=== PATIENT | female | born 1960 | race Caucasian/White ===

== ENCOUNTER 2018-06-15 10:32 | Outpatient (CLI) | payer OTHER, SELFPAY ==
[2018-06-15] VITALS (8 sets, daily range): BP systolic 119–143; BP diastolic 80–94; PULSE 78–85; RESP 16–20; TEMP 36.2; O2SAT 95–99
--- NOTE | 2018-06-15 10:34 | DI.RAD.S_ITS ---
PROCEDURE: PAIN C/T INTERLAMINAR INJECT INDICATIONS: SPINAL STENOSIS FINDINGS: Fluoroscopic spot filming was performed to verify placement of spinal needles at the C6-C7 level(s), as labeled on the films. Appropriate location(s) of the needle tip(s) was confirmed by injection of iodinated contrast. Dictated by: Major Diaz M.D. on 06/15/2018 at 20:45 Approved by: Major Diaz M.D. on 06/15/2018 at 20:45
[2018-06-15] MEDS: MIDAZOLAM 5 MG/5 ML VIAL IV (11:15)
[2018-06-15] MEDS: DEXAMETHASONE 10 MG/ML VIAL 30 MG INJ (11:21)
[2018-06-15] MEDS: IOPAMIDOL 15 ML VIAL 3 ML INJ (11:21)
[2018-06-15] MEDS: LIDOCAINE 1% 20 ML INJ 5 ML INJ (11:21)
--- NOTE | 2018-06-15 11:33 | PM.PROC.1 ---
Procedures Date/Time Date of procedure: 06/15/18 Time of procedure: 11:33 General Procedure description: PREOP DIAGNOSIS 1. CERVICAL STENOSIS, 2. CERVICAL HNP WITH UPPER EXTREMITY RADICULAR FEATURES, POST OP DIAGNOSIS 1. CERVICAL STENOSIS, 2. CERVICAL HNP WITH UPPER EXTREMITY RADICULAR FEATURES, PROCEDURES 1. FLUORSCOPICALLY GUIDED CONTRAST CONTROLLED INTERLAMINAR EPIDURAL STEROID INJECTION - C6/7 TL SHARIF PHYSICIAN: Wesley Kelly, DO INDICATIONS Mansi is referred by SHONA Hernandes for treatment of Cervical HNP with Upper Extremity Paresthesias. FINDINGS Cervical Stenosis due to disc deterioration and nerve root irritation and nerve root irritation DESCRIPTION OF PROCEDURE Fluoroscopically guided, contrast-controlled C6/7 translaminar epidural steroid injection with conscious sedation. Following denial of allergy and review of potential side effects and complications, including, but not necessarily limited to, infection, allergic reaction, local tissue breakdown, temporary as well as permanent nerve injury, stroke, paralysis, and possible , the patient indicated that patient understood and agreed to proceed. An informed consent document was signed by the patient, witnessed by a nurse, and placed in the patient's chart. Additionally, other treatment options including modalities, medications, and physical therapy were reviewed with the patient. After review of previous anaesthesic history and IV conscious sedation the patient was deemed safe to proceed with todays procedure with IV conscious sedation as ASA class II designation. Safety time-out was performed to confirm patient ID, procedure to be performed and site of procedure. IV sedation was accomplished with a combination of 3mg of Versed administered by the RN after DO order, titrated to patient comfort during the course of the procedure while the patient remained responsive to all verbal commands. In the prone position, following sterile prep and drape of the cervical region, the C6/7 translaminar space was identified fluoroscopically. The skin was anesthetized via a 25-gauge 1.5-inch needle with 1% lidocaine solution. At this point, a 25-gauge, 2.5-inch short bevel spinal needle was atraumatically introduced and advanced under fluoroscopic guidance into epidural space at the C6/7 translaminar space. Depth was confirmed on lateral view. Radiological data, including multiple fluoroscopic views of the cervical spine, reveal a spinal needle at the C6/7 translaminar space. Lateral views then show placement of the needle in the epidural space. Subsequent views show contrast material flowing superiorly and inferiorly in the epidural space. DSA fluoroscopy with live contrast injection, once again, confirmed no vascular or intrathecal uptake. At this point, using loss of resistance technique with saline and air, the epidural space was entered. Following negative aspiration, injection of approximately 1.5 cc of Isovue-200 with live fluoroscopy in the AP view confirmed epidural flow in the epidural space without vascular or intrathecal uptake observed. Subsequently, a test dose of 1 cc of 1% lidocaine solution was injected and patient was observed for two minutes without signs or symptoms of complications, including abdominal pain, shortness of breath, bilateral upper or lower extremity weakness, nausea and vomiting, prior to steroid injection. At this point, 3 cc or 30 mg of dexamethasone was then injected without incident. The patient tolerated the procedure well without signs or symptoms of complications prior to being transferred to the recovery area for further monitoring, The patient was then transferred to the recovery area where they were observed for an appropriate period of time after the injection. The patient reported a VAS score of 6 prior to the procedure and a post-procedure VAS of 0. Total Fluoroscopy Time: 37.0 seconds Total Conscious Time: 24min POST OP INSTRUCTIONS The patient was provided a Pain Log to continue to record their response to the target-specific procedure prior to follow-up visit with the referring provider. Additionally, specific post-injection care instructions and a contact number to our office were provided if concerns arise regarding possible complications associated with the procedure are suspected. Wesley Kelly, Complications: none
--- NOTE | 2018-06-15 11:41 | PC.NURSE ---
pt tolerated procedure well. awake and alert getting off table with minimal assist. Transferred via w/c to pre procedure room for continued monitoring with Karen HORTON.
--- NOTE | 2018-06-15 11:42 | PC.NURSE ---
ACCEPTED CARE OF PT IN STABLE CONDITION IN POST PROCEDURE AREA.
--- NOTE | 2018-06-16 17:06 | PC.NURSE ---
Follow up call to pt today one day post injection. left message as pt did not answer phone.
== END 2018-06-15 12:02 | disposition home or self-care (01) ==
PROVIDERS: Visit Provider Physical Medicine & Rehabilitation
DX: M48.02 Spinal stenosis, cervical region (principal); M50.123 Cervical disc disorder at C6-C7 level with radiculopathy
CPT/HCPCS: 62321; 99152; J1100; J2250

== ENCOUNTER → 2019-03-16 12:12 | Outpatient (CLI) | payer MEDICARE, OTHER, SELFPAY ==
--- NOTE | 2019-03-16 12:16 | DI.RAD.S_ITS ---
PROCEDURE: XR LUMBAR SPINE MIN 4V INDICATIONS: low back pain TECHNIQUE: 5 views of the lumbar spine were acquired. COMPARISON: None. FINDINGS: Bones: 5 nonrib-bearing vertebrae are present. There is normal bony alignment. No spondylolisthesis. Multilevel spondylitic changes identified in the lower thoracic spine and visualized lumbar spine with moderate mid and lower lumbar facet arthropathy. Degenerative endplate changes with focal changes at inferior endplate of L2 and superior endplate of L3 suggestive of Schmorl's node. No acute vertebral body compression fractures. No suspicious bony lesions. Soft tissues: Overlying bowel gas pattern is normal. No suspicious soft tissue calcifications. Vascular calcifications are present. Oblique images: No pars defects. IMPRESSION: Multilevel spondylosis of the lower thoracic spine and imaged lumbar spine with moderate mid and lower lumbar facet arthropathy. No evidence for pars defects. Dictated by: Hilario Chery M.D. on 03/16/2019 at 17:49 Approved by: Hilario Chery M.D. on 03/16/2019 at 17:52
== END ==
PROVIDERS: Visit Provider Physical Medicine & Rehabilitation
DX: M47.817 Spondylosis without myelopathy or radiculopathy, lumbosacral region (principal); M47.814 Spondylosis without myelopathy or radiculopathy, thoracic region; M47.816 Spondylosis without myelopathy or radiculopathy, lumbar region; M51.26 Other intervertebral disc displacement, lumbar region; M79.7 Fibromyalgia; R51 Headache; M48.02 Spinal stenosis, cervical region; M50.20 Other cervical disc displacement, unspecified cervical region
CPT/HCPCS: 72110; 99214

== ENCOUNTER → 2019-04-14 17:34 | Outpatient (CLI) | payer MEDICARE, OTHER, SELFPAY ==
--- NOTE | 2019-04-14 17:40 | DI.MRI.S_ITS ---
PROCEDURE: MR LUMBAR SPINE WO CON INDICATIONS: low back pain TECHNIQUE: Noncontrast sagittal T1 spin echo and T2 fast echo, sagittal STIR, axial T1 and T2 fast spin echo through the lumbar spine. In cases with scoliosis, additional coronal T2 fast spin echo may be performed. COMPARISON: [facility], CR, XR LUMBAR SPINE MIN 4V, 03/16/2019, 12:15. FINDINGS: Image quality: Excellent. Alignment and Curvature: There is minimal anterolisthesis at L5-S1. Associated pars defects are not seen. Bone Marrow: Marrow is of normal overall signal. No acute vertebral body compression fractures. Spinal Cord: Conus medullaris terminates at the T12-L1 level. Visualized cord demonstrates normal signal and size. Paraspinous Soft Tissues: No paravertebral masses. A horseshoe kidney is incidentally noted. T11-T12: Mild to moderate loss of disc height is seen. Bridging endplate osteophytes are seen. Mild disc bulge is seen. No significant neural foraminal narrowing. Mild central canal narrowing is seen. T12-L1: Normal appearance. L1-L2: Normal appearance. L2-L3: Mild to moderate loss of disc height and disc signal are seen. Zgid-dn-rmousvwv disc bulge is seen. No significant neural foraminal narrowing is seen. Minimal central canal narrowing is seen. L3-L4: The disc height is well-preserved. Loss of disc signal is seen at this level. Mild generalized disc bulge is seen. There is mild to moderate left-sided and no significant right-sided neural foraminal narrowing seen. No significant central canal narrowing is seen. L4-L5: The disc height is well-preserved. Loss of disc signal is seen at this level. Mild generalized disc bulge is seen. There is mild to moderate right-sided and moderate left-sided facet hypertrophy seen. There is mild right-sided and moderate left-sided neural foraminal narrowing seen. Mild central canal narrowing is seen. L5-S1: The disc height is well-preserved. Loss of disc signal is seen at this level. Minimal disc bulge is seen. Uqqe-py-naxrxfmo facet hypertrophy is seen. There is minimal left-sided and no right-sided neural foraminal narrowing. The central canal is widely patent. IMPRESSION: Multiple levels of lumbar spine degenerative change are seen, which are likely within normal limits for age. Horseshoe kidney seen. Dictated by: Juan Manuel Kimball M.D. on 04/15/2019 at 10:33 Approved by: Juan Manuel Kimball M.D. on 04/15/2019 at 10:38
== END ==
PROVIDERS: Visit Provider Physical Medicine & Rehabilitation
DX: M54.5 Low back pain (principal); M47.816 Spondylosis without myelopathy or radiculopathy, lumbar region; M47.817 Spondylosis without myelopathy or radiculopathy, lumbosacral region; Q63.1 Lobulated, fused and horseshoe kidney
CPT/HCPCS: 72148

== ENCOUNTER 2019-06-21 14:46 | Outpatient (CLI) | payer MEDICARE, OTHER, SELFPAY ==
[2019-06-21] VITALS (8 sets, daily range): BP systolic 105–117; BP diastolic 60–86; PULSE 71–87; RESP 16; TEMP 36.1; O2SAT 93–96
--- NOTE | 2019-06-21 15:55 | DI.RAD.S_ITS ---
PROCEDURE: PAIN L/S FACET INJ/BLK 1ST BROOKS COMPARISON: None. INDICATIONS: SPONDYLOSIS FINDINGS: 6 intraoperative fluoroscopy images demonstrate needle placement at L3-L4 and L4-L5 facet joint areas bilaterally. IMPRESSION: Fluoroscopy for pain management. Dictated by: Ariana Betancourt M.D. on 06/21/2019 at 17:34 Approved by: Ariana Betancourt M.D. on 06/21/2019 at 17:34
[2019-06-21] MEDS: fentaNYL 100 MCG/2 ML INJ 50 MCG IV (16:21)
[2019-06-21] MEDS: MIDAZOLAM 5 MG/5 ML VIAL IV (16:21)
[2019-06-21] MEDS: LIDOCAINE 1% 20 ML 10 ML INJ (16:28)
[2019-06-21] MEDS: BETAMETHASONE 30 MG/5 ML MDV 12 MG INJ (16:28)
[2019-06-21] MEDS: IOPAMIDOL 15 ML VIAL 3 ML INJ (16:28)
[2019-06-21] MEDS: BUPIVACAINE 0.25% (PF) VIAL 2 ML INJ (16:28)
--- NOTE | 2019-06-21 16:32 | PC.NURSE ---
ASSISTING PT OFF TABLE AND TRANSPORTING PT TO POST PROC AREA IN STABLE CONDITION. PASSING RN CARE OF PT OFF TO ESTEBAN Wright RN.
--- NOTE | 2019-06-21 16:36 | P.PCN_ITS ---
Procedures Date/Time Date of procedure: 06/21/19 Time of procedure: 16:36 General Procedure description: PREOP DIAGNOSIS 1. FACET ARTHROPATHY 2. AXIAL LBP 3. MULTILEVEL DDD POST OP DIAGNOSIS 1. FACET ARTHROPATHY 2. AXIAL LBP 3. MULTILEVEL DDD PROCEDURES 1. FLUORSCOPICALLY GUIDED CONTRAST CONTROLLED FACET JOINT INJECTIONS BILATERAL L3/4, L4/5 PHYSICIAN: Wesley Kelly DO INDICATIONS: Mansi is referred by SHONA Hernandes for treatment of Axial LBP FINDINGS Multilevel Facet Arthropathy with Clinically significant axial LBP DESCRIPTION OF PROCEDURE Fluoroscopically guided, contrast-controlled bilateral L3/4, L4/5 facet joint injections. Following review of allergy and review of potential side effects and complications, including, but not necessarily limited to, infection, allergic reaction, local tissue breakdown, stroke, temporary or permanent nerve injury, paralysis, and possible , the patient indicated that the patient understood and agreed to proceed. An informed consent document was signed by the patient, witnessed by a nurse, and placed in the patient's chart. Additionally, other treatment options including medications, modalities, and physical therapy were reviewed with the patient. After review of previous anaesthesic history and IV conscious sedation the patient was deemed safe to proceed with todays procedure with IV conscious sedation as ASA class II designation. Safety time-out was performed to confirm patient ID, procedure to be performed and site of procedure. IV sedation was accomplished with a combination of 2mg of Versed and 50mcg of Fentanyl was administered by the RN after DO order, titrated to patient comfort during the course of the procedure while the patient remained responsive to all verbal commands. In the prone position, following sterile prep and drape of the lumbar region, the posterior aspect of the L3/4, L4/5 facet joints were identified fluoroscopically. The skin was anesthetized via a 25-gauge 1.5-inch needle with 1% lidocaine solution into the corresponding facet joints. At this point, a 22- gauge 3.5-inch spinal needle was atraumatically introduced and advanced under fluoroscopic guidance into the corresponding facet joints. Following negative aspiration, injections of approximately 0.2-cc of Isovue 200 confirmed interarticular placement without vascular uptake. The identical procedure was then performed at the L3/4, L4/5 facet joints on the left. Radiological data, including multiple fluoroscopic views of the lumbosacral spine, reveal a spinal needle at the L3/4, L4/5 facet joints bilaterally. Subsequent views show flow of contrast material both superiorly and inferiorly within the joint space without vascular or intrathecal uptake. At this point, a total of 0.5cc including a mixture of 0.25cc Marcaine and 0.25cc betamethasone was injected without complication into each of the corresponding facet joints. The patient tolerated the procedure well without signs or symptoms of complications prior to transfer to the recovery area continued monitoring without incident. The patient was then transferred to the recovery area where they were observed for an appropriate period of time after the injection. The patient reported a VAS score of 7 prior to the procedure and a post-procedure VAS of 0. Total Fluoroscopy Time: 20.3 seconds Total Conscious Sedation Time: 24min POST OP INSTRUCTIONS The patient was provided a Pain Log to continue to record their response to the target-specific procedure prior to follow-up visit with their referring physician. Additionally, specific post-injection care instructions and a contact number to our office were provided if concerns arise regarding possible complications associated with the procedure are suspected. Wesley Kelly DO Complications: none
--- NOTE | 2019-06-21 17:15 | PC.NURSE ---
VERSED AND FENTANYL PREPARED AND ADMINISTERED BY THIS RN. ALL OTHER MEDS PREPARED AND ADMINISTERED BY DR. THOMAS.
--- NOTE | 2019-06-21 17:21 | PC.NURSE ---
Discharge note: Arrived to post procedure awake alert. Received handoff report from Lara Gauthier. VSS, O2 Sat WNL. No complaints of pain. discharged to home. w/c to car with at 1700
== END 2019-06-21 17:00 | disposition home or self-care (01) ==
PROVIDERS: Visit Provider Physical Medicine & Rehabilitation
DX: M47.816 Spondylosis without myelopathy or radiculopathy, lumbar region (principal); M54.5 Low back pain; M51.36 Other intervertebral disc degeneration, lumbar region
CPT/HCPCS: 64493; 64494; 99152; J0702; J2250; J3010

== ENCOUNTER → 2021-07-08 13:40 | Outpatient (CLI) | payer MEDICARE, OTHER, SELFPAY ==
--- NOTE | 2021-07-08 13:42 | DI.RAD.S_ITS ---
PROCEDURE: XR LUMBAR SPINE MIN 4V INDICATIONS: BACK PAIN TECHNIQUE: 4 views of the lumbar spine were acquired, including bilateral oblique views. COMPARISON: [facility], MR, MR LUMBAR SPINE WO CON, 04/14/2019, 18:01. [facility], CR, XR LUMBAR SPINE MIN 4V, 03/16/2019, 12:15. FINDINGS: Bones: 5 nonrib-bearing vertebrae are present. Grade 1 anterolisthesis of L4 on L5. Small vertebral body osteophytes. Mild disc space height loss. Lower lumbar spine facet joint hypertrophy. No vertebral body compression fractures. No suspicious bony lesions. Soft tissues: Overlying bowel gas pattern is normal. No suspicious soft tissue calcifications. Vascular calcifications. Oblique images: No pars defects. IMPRESSION: Jiso-dm-ndyadazb degenerative change. Overall findings not significantly changed. Dictated by: Siva Braden M.D. on 07/08/2021 at 14:43 Approved by: Siva Braden M.D. on 07/08/2021 at 14:47
== END ==
PROVIDERS: PCP Family Medicine; Referring Provider Physical Medicine & Rehabilitation; Visit Provider Physical Medicine & Rehabilitation
DX: M47.816 Spondylosis without myelopathy or radiculopathy, lumbar region (principal); M51.26 Other intervertebral disc displacement, lumbar region; M79.7 Fibromyalgia; M48.02 Spinal stenosis, cervical region; M47.27 Other spondylosis with radiculopathy, lumbosacral region
CPT/HCPCS: 72110; 99214

== ENCOUNTER → 2021-07-13 09:39 | Outpatient (CLI) | payer MEDICARE, OTHER, SELFPAY ==
--- NOTE | 2021-07-13 09:42 | DI.MRI.S_ITS ---
PROCEDURE: MR LUMBAR SPINE WO CON INDICATIONS: lumbar axial lbp TECHNIQUE: Noncontrast sagittal T1 spin echo and T2 fast echo, sagittal STIR, axial T1 and T2 fast spin echo through the lumbar spine. In cases with scoliosis, additional coronal T2 fast spin echo may be performed. COMPARISON: [facility], CR, XR LUMBAR SPINE MIN 4V, 07/08/2021, 13:50. [facility], MR, MR LUMBAR SPINE WO CON, 04/14/2019, 18:01. FINDINGS: Image quality: Excellent. Alignment and Curvature: There is trace L4-L5 anterolisthesis secondary to facet hypertrophy. Bone Marrow: Marrow is of normal overall signal. No acute vertebral body compression fractures. Spinal Cord: Conus medullaris terminates at the L1 level. Visualized cord demonstrates normal signal and size. Paraspinous Soft Tissues: No paravertebral masses. T12-L1: Normal appearance. L1-L2: Normal appearance. L2-L3: Loss of disc signal and height. Mild, diffuse disc bulge. Mild narrowing of the central canal. Mild bilateral neural foraminal narrowing. No neural compression. L3-L4: Loss of disc signal. Mild to moderate diffuse disc bulge. Mild narrowing of the central canal. Mild bilateral neural foraminal narrowing. No neural compression. L4-L5: Loss of disc signal. Mild, diffuse disc bulge. Moderate bilateral facet hypertrophy. Mild narrowing of the central canal. Mild to moderate bilateral neural foraminal narrowing. No neural compression. L5-S1: Loss of disc signal. Mild to moderate bilateral facet hypertrophy. No central stenosis. Mild left neural foraminal narrowing. No neural compression. IMPRESSION: 1. Multilevel degenerative disc disease. 2. Multilevel facet arthropathy. 3. Grade 1 L4-L5 degenerative spondylolisthesis. 4. No severe central canal narrowing. 5. No severe neural foraminal narrowing. 6. No neural compression. Dictated by: Cecy Reese MD, PhD on 07/15/2021 at 9:05 Approved by: Cecy Reese MD, PhD on 07/15/2021 at 9:08
== END ==
PROVIDERS: PCP Family Medicine; Referring Provider Physical Medicine & Rehabilitation; Visit Provider Physical Medicine & Rehabilitation
DX: M47.817 Spondylosis without myelopathy or radiculopathy, lumbosacral region (principal); M47.816 Spondylosis without myelopathy or radiculopathy, lumbar region; M51.36 Other intervertebral disc degeneration, lumbar region; M51.37 Other intervertebral disc degeneration, lumbosacral region; M43.16 Spondylolisthesis, lumbar region
CPT/HCPCS: 72148; Q9967

== ENCOUNTER → 2021-08-27 10:53 | Outpatient (CLI) | payer MEDICARE, OTHER, SELFPAY ==
[2021-08-27 13:43] LABS: COVID19 -Nasal RAPID Negative (Negative)
== END ==
PROVIDERS: PCP Family Medicine; Visit Provider Physical Medicine & Rehabilitation
DX: Z20.822 Contact with and (suspected) exposure to COVID-19 (principal)
CPT/HCPCS: 87635; C9803

== ENCOUNTER 2021-08-29 10:34 | Outpatient (CLI) | payer MEDICARE, OTHER, SELFPAY ==
[2021-08-29] VITALS (8 sets, daily range): BP systolic 106–173; BP diastolic 67–90; PULSE 60–82; RESP 12–20; O2SAT 93–97
--- NOTE | 2021-08-29 10:35 | DI.RAD.S_ITS ---
PROCEDURE: PAIN L/S FACET INJ/BLK 1ST BROOKS COMPARISON: None. INDICATIONS: SPONDYLOSIS FINDINGS: Access needles placed at the bilateral L3-L4, L4-L5 and L5-S1 neural foramina for medial branch block. Injection of contrast material through the access needles demonstrates extra thecal location of the needle tips. IMPRESSION: Access needles at the bilateral L3-L4, L4-L5 and L5-S1 neural foramina for bilateral L3, L4 and L5 medial branch block. Dictated by: Cecy Reese MD, PhD on 08/29/2021 at 18:05 Approved by: Cecy Reese MD, PhD on 08/29/2021 at 18:06
[2021-08-29] MEDS: fentaNYL 250 MCG/5 ML INJ 50 MCG IV (11:20)
[2021-08-29] MEDS: MIDAZOLAM 5 MG/5 ML VIAL IV (11:20)
[2021-08-29] MEDS: BUPIVACAINE 0.5% (PF) VIAL 5 ML INJ (11:24)
[2021-08-29] MEDS: LIDOCAINE 1% 20 ML (11:24)
[2021-08-29] MEDS: IOPAMIDOL 15 ML VIAL 3 ML INJ (11:24)
--- NOTE | 2021-08-29 11:42 | P.PCN_ITS ---
Date/Time/Diagnoses Date of procedure: 08/29/21 Time of procedure: 11:42 Pre-procedure diagnosis: 1. FACET ARTHROPATHY Post-procedure diagnosis: same Procedure Notes Procedure: 1. BILATERAL L3, L4 AND L5 DIAGNOSTIC MB BLOCKS Indications: Mansi is referred by Dr. Cameron for treatment of Bilateral Axial LBP. Physician: Wesley Kelly Total Fluoroscopy time (seconds): 9 Total sedation minutes: 12 Complications: none Procedure in detail & Post-procedure care: DESCRIPTION OF PROCEDURE Fluoroscopically guided, contrast-controlled bilateral L3, L4 AND L5 medial branch blocks with 0.5cc of 0.5% Marcaine. Following review of allergy and review of potential side effects and complications, including, but not necessarily limited to, infection, allergic reaction, local tissue breakdown, nerve injury, paralysis, stroke and possible , the patient indicated that the patient understood and agreed to proceed. An informed consent document was signed by the patient, witnessed by a nurse, and placed in the patient's chart. After review of previous anaesthesic history and IV conscious sedation the patient was deemed safe to proceed with today's procedure with IV conscious sedation as ASA class II designation. Safety time-out was performed to confirm patient ID, procedure to be performed and site of procedure. IV sedation was accomplished with a combination of 2mg of Versed and 50mcg of Fentantyl was administered by the RN after DO order, titrated to patient comfort during the course of the procedure while the patient remained responsive to all verbal commands In the prone position, following sterile prep and drape of the lumbar region, the right L3, L4 AND L5 anatomical location of the medial branch of the dorsal ramus was identified fluoroscopically. Subsequently an anesthetic skin wheal using 1% lidocaine solution was initiated at each of the anatomical spots. Subsequently then a 22-gauge 3.5-inch spinal needle was atraumatically introduced and advanced under fluoroscopic guidance at each of the corresponding sites at the right L3, L4 and L5 MB. After negative aspiration, 0.2cc of Isovue 200 was injected, confirming placement without vascular or intrathecal uptake. Subsequently then 0.5cc of 0.5% Marcaine solution was injected at each of the corresponding sites at the right L3, L4 and L5 medial branch locations. The identical procedure was replicated on the left. The patient tolerated the procedure well without signs or symptoms of complications. The patient tolerated the procedure well without signs or symptoms of complications prior to transfer to the recovery area continued monitoring without incident. Post-procedure, the patient was monitored initiating provocative activities to measure the amount of relief from block of the facetogenic pain. The patient reported a VAS of 7 prior to the procedure and a post-procedure VAS of 1. It has been a pleasure to assist in the diagnostic and therapeutic care of your patient. POST OP INSTRUCTIONS The patient was provided with a Pain Log to complete over the next several hours and subsequent days prior to the patient's follow up with the ordering physician. If the patient has senior materials scientist relief to the solution applied, then they may be a candidate for medial branch rhizotomy. The patient is aware, was provided, once again, with a Pain Log and will follow up with the referring physician for review and clinical correlation
== END 2021-08-29 11:53 | disposition home or self-care (01) ==
LOC: RAD 10:35
PROVIDERS: PCP Family Medicine; Referring Provider Physical Medicine & Rehabilitation; Visit Provider Physical Medicine & Rehabilitation
DX: M47.816 Spondylosis without myelopathy or radiculopathy, lumbar region (principal)
CPT/HCPCS: 64493; 64494; 99152; J2250; J3010

== ENCOUNTER → 2021-12-09 11:20 | Outpatient (CLI) | payer MEDICARE, OTHER, SELFPAY ==
[2021-12-09 13:06] LABS: COVID19 -Nasal RAPID Negative (Negative)
== END ==
PROVIDERS: PCP Family Medicine; Visit Provider Physical Medicine & Rehabilitation
DX: Z20.822 Contact with and (suspected) exposure to COVID-19 (principal)
CPT/HCPCS: 87635; C9803

== ENCOUNTER 2021-12-10 09:30 | Outpatient (CLI) | payer MEDICARE, OTHER, SELFPAY ==
[2021-12-10] VITALS (9 sets, daily range): BP systolic 120–160; BP diastolic 71–93; PULSE 73–92; RESP 18–22; TEMP 36.3; O2SAT 95–99
--- NOTE | 2021-12-10 09:34 | DI.RAD.S_ITS ---
PROCEDURE: PAIN L/S FACET INJ/BLK 1ST BROOKS COMPARISON: [facility], , PAIN L/S FACET INJ/BLK 1ST BROOKS, 08/29/2021, 12:25. INDICATIONS: SPONDYLOSIS FINDINGS: Fluoroscopic spot filming was performed to verify placement of spinal needles on both sides at the L3, L4, and L5 levels, as labeled on the films. Appropriate location of the needle tips was confirmed by injection of iodinated contrast. IMPRESSION: Intraprocedural examination demonstrating appropriate positions of the needles. Dictated by: Juan Manuel Kimball M.D. on 12/10/2021 at 10:07 Approved by: Juan Manuel Kimball M.D. on 12/10/2021 at 10:07
[2021-12-10] MEDS: MIDAZOLAM 2 MG/2 ML VIAL (10:23)
[2021-12-10] MEDS: MIDAZOLAM 2 MG/2 ML VIAL IV (10:25)
[2021-12-10] MEDS: IOPAMIDOL 15 ML VIAL 3 ML INJ (10:28)
[2021-12-10] MEDS: BUPIVACAINE 0.5% (PF) VIAL 30 ML (10:29)
[2021-12-10] MEDS: LIDOCAINE 1% 20 ML (10:29)
--- NOTE | 2021-12-10 10:47 | PM.PROC.IR.1 ---
Date/Time/Diagnoses Date of procedure: 12/10/21 Time of procedure: 10:47 Pre-procedure diagnosis: 1. FACET ARTHROPATHY Post-procedure diagnosis: same Procedure Notes Procedure: 1. BILATERAL L3, L4 AND L5 DIAGNOSTIC MB BLOCKS Indications: Mansi is referred by Dr. Cameron for treatment of Bilateral Axial LBP. Physician: Wesley Kelly Total Fluoroscopy time (seconds): 16 Total sedation minutes: 17 Complications: none Procedure in detail & Post-procedure care: DESCRIPTION OF PROCEDURE Fluoroscopically guided, contrast-controlled bilateral L3, L4 AND L5 medial branch blocks with 0.5cc of 2% Lidocaine. Following review of allergy and review of potential side effects and complications, including, but not necessarily limited to, infection, allergic reaction, local tissue breakdown, nerve injury, paralysis, stroke and possible , the patient indicated that the patient understood and agreed to proceed. An informed consent document was signed by the patient, witnessed by a nurse, and placed in the patient's chart. After review of previous anaesthesic history and IV conscious sedation the patient was deemed safe to proceed with today's procedure with IV conscious sedation as ASA class II designation. Safety time-out was performed to confirm patient ID, procedure to be performed and site of procedure. IV sedation was accomplished with a combination of 4mg of Versed was administered by the RN after DO order, titrated to patient comfort during the course of the procedure while the patient remained responsive to all verbal commands In the prone position, following sterile prep and drape of the lumbar region, the right L3, L4 AND L5 anatomical location of the medial branch of the dorsal ramus was identified fluoroscopically. Subsequently an anesthetic skin wheal using 1% lidocaine solution was initiated at each of the anatomical spots. Subsequently then a 22-gauge 3.5-inch spinal needle was atraumatically introduced and advanced under fluoroscopic guidance at each of the corresponding sites at the right L3, L4 and L5 MB. After negative aspiration, 0.2cc of Isovue 200 was injected, confirming placement without vascular or intrathecal uptake. Subsequently then 0.5cc of 2% Lidocaine solution was injected at each of the corresponding sites at the right L3, L4 and L5 medial branch locations. The identical procedure was replicated on the left. The patient tolerated the procedure well without signs or symptoms of complications. The patient tolerated the procedure well without signs or symptoms of complications prior to transfer to the recovery area continued monitoring without incident. Post-procedure, the patient was monitored initiating provocative activities to measure the amount of relief from block of the facetogenic pain. The patient reported a VAS of 7 prior to the procedure and a post-procedure VAS of 1. It has been a pleasure to assist in the diagnostic and therapeutic care of your patient. POST OP INSTRUCTIONS The patient was provided with a Pain Log to complete over the next several hours and subsequent days prior to the patient's follow up with the ordering physician. If the patient has environmental management specialist relief to the solution applied, then they may be a candidate for medial branch rhizotomy. The patient is aware, was provided, once again, with a Pain Log and will follow up with the referring physician for review and clinical correlation
== END 2021-12-10 11:00 | disposition home or self-care (01) ==
PROVIDERS: PCP Family Medicine; Referring Provider Physical Medicine & Rehabilitation; Visit Provider Physical Medicine & Rehabilitation
DX: M47.816 Spondylosis without myelopathy or radiculopathy, lumbar region (principal); M47.817 Spondylosis without myelopathy or radiculopathy, lumbosacral region
CPT/HCPCS: 64493; 64494; 64495; 99152; J2250

== ENCOUNTER 2022-04-15 10:34 | Outpatient (CLI) | payer MEDICARE, OTHER, SELFPAY ==
[2022-04-15] VITALS (10 sets, daily range): BP systolic 125–188; BP diastolic 71–89; PULSE 63–70; RESP 11–20; TEMP 35.7; O2SAT 98–100
--- NOTE | 2022-04-15 10:36 | DI.RAD.S_ITS ---
PROCEDURE: PAIN L/S MED/LAT N RFA BILAT INDICATIONS: SPONDYLOSIS COMPARISON: None. FINDINGS: Fluoroscopic spot filming was performed to verify placement of spinal needles on the right at the L3, L4, and L5 level(s), as labeled on the films. IMPRESSION: Fluoroscopic images as above. Dictated by: Oscar Marquez M.D. on 04/15/2022 at 14:36 Approved by: Oscar Marquez M.D. on 04/15/2022 at 14:38
[2022-04-15] MEDS: LIDOCAINE 1% (PF) 5 ML INJ (12:32)
[2022-04-15] MEDS: BUPIVACAINE 0.5% (PF) VIAL 5 ML INJ (12:35)
[2022-04-15] MEDS: MIDAZOLAM 2 MG/2 ML VIAL 4 MG IV (12:40)
--- NOTE | 2022-04-15 13:02 | P.PCN_ITS ---
Date/Time/Diagnoses Date of procedure: 04/15/22 Time of procedure: 13:02 Pre-procedure diagnosis: 1. RECALCITRANT FACET ARTHROPATHY Post-procedure diagnosis: same Procedure Notes Procedure: 1. BILATERAL L3, L4 AND L5 MEDIAL BRANCH RADIOFREQUENCY NEUROTOMY Indications: Mansi is referred by Dr. Cameron for treatment of facet arthropathy. Physician: Wesley Kelly Total Fluoroscopy time (seconds): 17 Total sedation minutes: 31 Complications: none Procedure in detail & Post-procedure care: DESCRIPTION OF PROCEDURE Bilateral L3, L4 and L5 medial branch radiofrequency neurotomy The patient is well known to this clinic having undergone previous facet injections with good but temporary relief. The patient has experienced appropriate, concordant relief with previous facet and median branch blocks but the patient's pain has been recalcitrant to further conservative measures. Therefore, based upon the patient's relief and persistent symptoms, the patient is considered an appropriate candidate for facet rhizotomy. All of the patient's questions regarding the risks versus benefits of the procedure, including, but not limited to, bleeding, infection, temporary as well as lasting nerve injury, paralysis, stroke, and , as well treatment alternatives were answered to satisfaction. After obtaining informed consent, denial of pertinent drug allergies, as well as being made aware of the potential risks of bleeding, infection, spinal cord trauma, paralysis, temporary and permanent nerve damage, seizure, stroke, and possible , the patient was brought to the fluoroscopy suite and positioned prone on the fluoroscopy table. The lumbar region was prepped with Betadine and covered with a fenestrated drape in the usual sterile fashion. Appropriate monitors applied including pulse oximeter, pulse, and blood pressure for regular monitoring throughout the procedure. After review of previous anaesthesic history and IV conscious sedation the patient was deemed safe to proceed with today's procedure with IV conscious sedation as ASA class II designation. Safety time-out was performed to confirm patient ID, procedure to be performed and site of procedure. IV sedation was acc omplished with a combination of 4mg of Versed administered by the RN after DO order, titrated to patient comfort during the course of the procedure while the patient remained responsive to all verbal commands. After local infiltration using 1% lidocaine, under fluoroscopic guidance, a 10- cm RF insulated needle with a 10-mm active tip was positioned parallel to the junction of the right the superior articulating process where the L5 medial branch resides. Needle placement was confirmed with motor stimulation of .5v on the right which produced local stimulation without radicular component. The stimulation was then increased to 2v with, once again, only local multifidus stimulation without radicular component. The needle was then removed and the identical procedure was performed along the length of the right L4 medial branch with motor stimulation at .7v on the right. The identical procedure was once again performed along the length of the right L3 and medial branch with motor stimulation of .5v on the right. The medial branches were then anesthetised with 0.5% marcaine. This was then followed by two discreet lesions performed at 80 degrees Celsius for 90 seconds each. The identical procedures were repeated on the left. The patient tolerated the procedure well without signs or symptoms of complications prior to transfer to the recovery area continued monitoring without incident. The patient was then transferred to the recovery area where they were observed for an appropriate period of time after the injection. The patient reported a VAS score of 9 prior to the procedure and a post-procedure VAS of 0. POST OP INSTRUCTIONS The patient was provided a Pain Log to continue to record the patient's response to the target-specific procedure prior to the patient's follow-up visit with the referring physician. Additionally, specific post-injection care instructions and a contact number to our office were provided if concerns arise regarding possible complications associated with the procedure are suspected.
== END 2022-04-15 13:12 | disposition home or self-care (01) ==
LOC: RAD 10:35
PROVIDERS: PCP Family Medicine; Referring Provider Physical Medicine & Rehabilitation; Visit Provider Physical Medicine & Rehabilitation
DX: M47.816 Spondylosis without myelopathy or radiculopathy, lumbar region (principal)
CPT/HCPCS: 64635; 64636; 99152; 99153; J2250

== ENCOUNTER → 2022-07-16 14:31 | Outpatient (CLI) | payer MEDICARE, OTHER, SELFPAY ==
--- NOTE | 2022-07-16 14:32 | DI.RAD.S_ITS ---
PROCEDURE: XR CERVICAL SPINE 4V OR 5V INDICATIONS: NECK PAIN TECHNIQUE: 5 views of the cervical spine acquired. COMPARISON: None. FINDINGS: Bones: No fractures or dislocations to the C7-T1 level. There is reversal of normal cervical lordosis. Loss of disc height, degenerative endplate changes and bilateral facet hypertrophic changes are seen at C4-5 through C6-7 levels. Oblique images demonstrate bilateral bony foraminal stenosis at C4-5 and C5-6 levels. Soft tissues: No prevertebral soft tissue swelling. IMPRESSION: Degenerative disc disease in mid to lower cervical spine with bilateral bony foraminal stenosis at C4-5 and C5-6 levels. No fracture or dislocation. Dictated by: Pal Lopez M.D. on 07/16/2022 at 15:13 Approved by: Pal Lopez M.D. on 07/16/2022 at 15:22
== END ==
PROVIDERS: PCP Family Medicine; Referring Provider Physical Medicine & Rehabilitation; Visit Provider Physical Medicine & Rehabilitation
DX: M48.02 Spinal stenosis, cervical region (principal); M50.321 Other cervical disc degeneration at C4-C5 level; M47.812 Spondylosis without myelopathy or radiculopathy, cervical region; R51.9 Headache, unspecified; M47.816 Spondylosis without myelopathy or radiculopathy, lumbar region; M51.26 Other intervertebral disc displacement, lumbar region; M79.7 Fibromyalgia
CPT/HCPCS: 72050; 99214

== ENCOUNTER 2022-08-05 09:06 | Outpatient (CLI) | payer MEDICARE, OTHER, SELFPAY ==
[2022-08-05] VITALS (8 sets, daily range): BP systolic 141–183; BP diastolic 69–87; PULSE 63–70; RESP 16–20; TEMP 36.8; O2SAT 98–100
--- NOTE | 2022-08-05 09:12 | DI.RAD.S_ITS ---
PROCEDURE: PAIN C/T FACET INJ/BLK 1ST L INDICATIONS: SPINAL STENOSIS COMPARISON: Outside Facility, RG, MRI C-SPINE W/O CONTRAST, 05/07/2022, 14:00. [facility], CR, XR CERVICAL SPINE 4V OR 5V, 07/16/2022, 14:31. FINDINGS: Fluoroscopic spot filming was performed to verify placement of spinal needles at the left C4-C5 and C5-C6 level(s), as labeled on the films. Appropriate location(s) of the needle tip(s) was confirmed by injection of iodinated contrast. IMPRESSION: Fluoroscopy for pain management. Dictated by: Ariana Betancourt M.D. on 08/05/2022 at 11:34 Approved by: Ariana Betancourt M.D. on 08/05/2022 at 11:35
--- NOTE | 2022-08-05 10:12 | PC.NURSE ---
Patient did not hold peroxicam x3 days prior to procedure. Dr Kelly aware and ok to proceed with injection.
[2022-08-05] MEDS: MIDAZOLAM 2 MG/2 ML VIAL IV (10:15)
[2022-08-05] MEDS: DEXAMETHASONE 10 MG/ML VIAL 20 MG INJ (10:20)
[2022-08-05] MEDS: IOPAMIDOL 15 ML VIAL 3 ML INJ (10:20)
[2022-08-05] MEDS: BUPIVACAINE 0.5% MDV 5 ML SUBCUT (10:22)
--- NOTE | 2022-08-05 10:31 | P.PCN_ITS ---
Date/Time/Diagnoses Date of procedure: 08/05/22 Time of procedure: 10:31 Pre-procedure diagnosis: 1. FACET ARTHROPATHY 2. AXIAL NECK PAIN Post-procedure diagnosis: same Procedure Notes Procedure: 1. FLUOROSCOPICALLY GUIDED, CONTRAST-CONTROLLED LEFT C4/5, C5/6 FACET JOINT INJECTIONS WITH CONSCIOUS SEDATION. Indications: Mansi is referred by Dr. Cameron for treatment of Axial Neck Pain Physician: Wesley Kelly Total Fluoroscopy time (seconds): 7 Total sedation minutes: 9 Complications: none Procedure in detail & Post-procedure care: DESCRIPTION OF PROCEDURE Fluoroscopically guided, contrast-controlled left C4/5, C5/6 facet joint injections with conscious sedation. Following review of allergy and review of potential side effects and complications, including, but not necessarily limited to, infection, allergic reaction, local tissue breakdown, stroke, temporary or permanent nerve injury and paralysis, the patient indicated that the patient understood and agreed to proceed. An informed consent document was signed by the patient, witnessed by a nurse, and placed in the patient's chart. Additionally, other treatment options including medications, modalities, and physical therapy were reviewed with the patient. After review of previous anaesthesic history and IV conscious sedation the patient was deemed safe to proceed with today?s procedure with IV conscious sedation as ASA class II designation. Safety time-out was performed to confirm patient ID, procedure to be performed and site of procedure. IV sedation was accomplished with a combination of 2mg of Versed was administered by the RN after DO order, titrated to patient comfort during the course of the procedure while the patient remained responsive to all verbal commands In the prone position, following sterile prep and drape of the cervical spine region, the posterior aspect of the left C4/5, C5/6 facet joints were identified fluoroscopically. The skin was anesthetized via a 25-gauge 1.5-inch needle with 1% lidocaine solution into the corresponding facet joints. At this point, a 25- gauge 2.5-inch spinal needle was atraumatically introduced and advanced under fluoroscopic guidance into the corresponding facet joints. Following negative aspiration, injections of approximately 0.2-cc of Isovue 200 confirmed interarticular placement without vascular uptake. At this point, a total of 1cc including 0.5 cc or 5mg of dexamethasone combined with 0.5cc of 1% lidocaine solution was injected without complication into each of the corresponding facet joints. The patient tolerated the procedure well without signs or symptoms of complications prior to transfer to the recovery area continued monitoring without incident. The patient was then transferred to the recovery area where they were observed for an appropriate period of time after the injection. The patient reported a VAS score of 7 prior to the procedure and a post- procedure VAS of 0. POST OP INSTRUCTIONS They were provided a Pain Log to continue to record their response to the target-specific procedure prior to their follow-up visit with their referring physician. Additionally, specific post-injection care instructions and a contact number to our office were provided if concerns arise regarding possible complications associated with the procedure are suspected.
== END 2022-08-05 10:50 | disposition home or self-care (01) ==
LOC: RAD 09:11
PROVIDERS: PCP Family Medicine; Referring Provider Physical Medicine & Rehabilitation; Visit Provider Physical Medicine & Rehabilitation
DX: M47.812 Spondylosis without myelopathy or radiculopathy, cervical region (principal)
CPT/HCPCS: 64490; 64491; J1100; J2250